=== PATIENT | male | born 1955 | race Caucasian/White ===

== ENCOUNTER → 2016-03-30 | Outpatient (CLI) | payer OTHER ==
[2016-03-30 16:15] LABS: CH 31.4; CHCM 34.1; HDW 2.29; HGB 15.9 gm/dL (13.0-17.5); MCH 31.2 pg (25.0-35.0); MCHC 33.8 g/dL (31.0-37.0); MCV 92.4 fL (80.0-100.0); Mean Platelet Volume 8.4; RBC 5.08 m/uL (4.30-5.90); RDW 12.1 % (11.5-15.5); WBC 6.6 k/uL (3.8-10.6)
[2016-03-30 16:28] LABS: ALT 34 U/L (21-72); AST 26 U/L (17-59); Alkaline Phosphatase 57 U/L (38-126); Anion Gap 11 mmol/L; Blood Urea Nitrogen 25 mg/dL (9-20); Calcium 9.9 mg/dL (8.4-10.2); Carbon Dioxide 30 mmol/L (22-30); Chloride 101 mmol/L (98-107); Glucose 94 mg/dL (74-99); Non-African American GFR(MDRD) >60 (>60 ml/min/1.73 sqM); Potassium 4.8 mmol/L (3.5-5.1); Sodium 142 mmol/L (137-145); Total Protein 7.8 g/dL (6.3-8.2)
[2016-03-30 17:16] LABS: Vitamin B12 401 pg/mL (239-931)
== END | disposition home or self-care (01) ==
LOC: LABWHC1 15:45
PROVIDERS: ATTEND Psychiatry & Neurology Pain Medicine
DX: R41.3 Other amnesia (principal)
CPT/HCPCS: 36415; 80053; 82607; 84207; 84439; 84443; 84481; 85027

== ENCOUNTER → 2016-04-22 | Outpatient (CLI) | payer OTHER ==
--- NOTE | 2016-04-22 14:49 | XR ---
EXAMINATION TYPE: XR chest 2V DATE OF EXAM: 04/22/2016 12:48 PM COMPARISON: 12/31/2014 TECHNIQUE: PA and lateral views submitted. HISTORY: Cough and congestion FINDINGS: The lungs are clear and there is no pneumothorax, pleural effusion, or focal pneumonia. Linear allen ges in the perihilar region most typical of scar or atelectasis. IMPRESSION: 1. No acute process.
== END | disposition home or self-care (01) ==
LOC: RADXRMAIN 12:21
PROVIDERS: ATTEND Internal Medicine
DX: J20.9 Acute bronchitis, unspecified (principal)
CPT/HCPCS: 71020

== ENCOUNTER → 2016-05-11 | Outpatient (CLI) | payer OTHER ==
--- NOTE | 2016-05-11 15:45 | NM ---
EXAMINATION TYPE: NM DatScan Brain SPECT DATE OF EXAM: 05/11/2016 2:59 PM COMPARISON: NONE HISTORY: Memory loss TECHNIQUE: 10 drops of Lugol's solution was administered 1 hour prior to injection as a thyroid bloc chiqui agent. After the administration of 4.3 mCi I-123 Ioflupane DaTscan. Images obtained 3.25 hours post injection. SPECT images of the brain were acquired with axial and coronal reconstructions. FINDINGS: The axial SPECT images demonstrate increased background activity and reduced activity withi n the bilateral striata. IMPRESSION: Abnormal appearance highly suggestive of idiopathic Parkinson's disease or Parkinsonian s yndrome. FINDINGS: The axial SPECT images demonstrate normal background activity. Accounting for head tilt, t here appears to be symmetric comma-shaped appearance of the corpus striatum. IMPRESSION: 1. Normal uptake. In the appropriate clinical setting there is concern for Alzheimer's disease then t his scan would be compatible.
== END ==
LOC: RADNMMAIN 09:46
PROVIDERS: ATTEND Psychiatry & Neurology Neurology
DX: R41.3 Other amnesia (principal)
CPT/HCPCS: 78607; A9584

== ENCOUNTER → 2017-05-23 | Outpatient (CLI) | payer OTHER ==
[2017-05-23 17:36] LABS: Albumin 4.3 g/dL (3.5-5.0); Calcium 9.9 mg/dL (8.4-10.2); Potassium 4.5 mmol/L (3.5-5.1); Total Bilirubin 0.6 mg/dL (0.2-1.3); Total Protein 7.5 g/dL (6.3-8.2)
--- NOTE | 2017-05-23 18:16 | CT ---
EXAMINATION TYPE: CT chest abdomen w con DATE OF EXAM: 05/23/2017 COMPARISON: NONE HISTORY: LUQ abd pain. CT DLP: 682.8 mGycm. Automated Exposure Control for Dose Reduction was Utilized. CONTRAST: CT scan of the thorax, abdomen and pelvis is performed with IV Contrast, patient injected with 100ml mL of Isovue 300. FINDINGS: LUNGS AND PLEURAL SPACES: The lungs are grossly clear, there is no concerning parenchymal mass or nod ule identified. There is no pleural effusion or pneumothorax seen. The tracheobronchial tree is pa tent. MEDIASTINUM: There are no greater than 1 cm hilar or mediastinal lymph nodes. No pericardial effusi on is seen. There is no cardiomegaly, LAD coronary stent appreciated. Low attenuation is seen in the subendocardial position throughout the LAD vascular territory, this finding predominantly attenuates negatively and appears to represent fatty replacement from chronic myocardial infarction. LIVER/GB: No significant abnormality is appreciated. PANCREAS: No significant abnormality is seen. SPLEEN: No significant abnormality is seen. ADRENALS: No significant abnormality is seen. KIDNEYS: No significant abnormality is seen. BOWEL: No significant abnormality is seen. LYMPH NODES: No greater than 1cm abdominal or pelvic lymph nodes are appreciated. OSSEOUS STRUCTURES: No significant abnormality is seen. IMPRESSION: 1. NO DEFINITE ACUTE PROCESS, CHEST AND ABDOMEN CT WITH CONTRAST. 2. MYOCARDIAL SUBENDOCARDIAL FINDINGS NOTED; WHICH APPEAR TO BE CHRONIC BY CT CRITERIA.
[2017-05-24 03:40] LABS: Hemoglobin A1C 5.9 % (4.0-6.0)
== END ==
LOC: RAD 16:20
PROVIDERS: ATTEND Family Medicine
DX: R10.9 Unspecified abdominal pain (principal); R07.9 Chest pain, unspecified; I82.409 Acute embolism and thrombosis of unspecified deep veins of unspecified lower extremity; I10 Essential (primary) hypertension; R06.2 Wheezing
CPT/HCPCS: 85379; 80061; 80053; 82150; 83690; 84443; 83036; 71260; 74160; 36415; Q9967

== ENCOUNTER 2018-03-20 10:46 | Emergency (ER) | payer OTHER ==
[2018-03-20 11:05] VITALS: RESP 18
--- NOTE | 2018-03-20 11:49 | ED ---
URI HPI - General Chief Complaint: Upper Respiratory Infection Stated Complaint: flu symptoms Time Seen by Provider: 03/20/18 11:21 Source: patient, RN notes reviewed, old records reviewed Mode of arrival: ambulatory Limitations: no limitations - History of Present Illness Initial Comments: 62-year-old male presents today with complaint of cough congestion 1 month. Patient states that he is a occasional recreational smoker. He reports that his symptoms started as upper respiratory cough and cold. He reports that now seems to have settled into his chest. Patient states that he has had no abdominal pain nausea vomiting. He denies chest pain. Patient states he's been using Mucinex and lape-lyf-wythzvb cough syrup with little relief. Patient states he's had intermittent fevers as well throughout this time. MD Complaint: fever, cough - Related Data Home Medications Medication Instructions Recorded Confirmed Aspirin 81 mg PO DAILY 04/29/15 03/20/18 Simvastatin [Zocor] 20 mg PO HS 04/29/15 03/20/18 ALPRAZolam [Xanax] 1 mg PO HS PRN 08/15/15 03/20/18 Carvedilol [Coreg] 6.25 mg PO BID 03/20/18 03/20/18 Levothyroxine Sodium [Synthroid] 100 mcg PO DAILY 03/20/18 03/20/18 Lisinopril [Prinivil] 5 mg PO DAILY 03/20/18 03/20/18 Loratadine [Claritin] 10 mg PO DAILY 03/20/18 03/20/18 Nitroglycerin Sl Tabs [Nitrostat] 0.4 mg SUBLINGUAL Q5M PRN 03/20/18 03/20/18 QUEtiapine [SEROquel] 100 mg PO HS 03/20/18 03/20/18 Ranitidine HCl [Zantac] 300 mg PO BID 03/20/18 03/20/18 Previous Rx's Medication Instructions Recorded Azithromycin [Zithromax Z-pack] 250 mg PO DIRECTED #6 tab 03/20/18 predniSONE 50 mg PO DAILY #5 tablet 03/20/18 Allergies Allergy/AdvReac Type Severity Reaction Status Date / Time No Known Allergies Allergy Verified 03/20/18 11:20 Review of Systems ROS Statement: Those systems with pertinent positive or pertinent negative responses have been documented in the HPI. ROS Other: All systems not noted in ROS Statement are negative. Past Medical History Past Medical History: Chest Pain / Angina, Hyperlipidemia, Myocardial Infarction (SC) Last Myocardial Infarction Date:: 2001 History of Any Multi-Drug Resistant Organisms: None Reported Past Surgical History: Adenoidectomy, Heart Catheterization, Heart Catheterization With Stent, Hernia Repair, Tonsillectomy Additional Past Surgical History / Comment(s): RHINOPLASTY. CYST REMOVED FROM BACK Past Anesthesia/Blood Transfusion Reactions: No Reported Reaction Date of Last Stent Placement:: 2001 Past Psychological History: Anxiety, Depression Smoking Status: Former smoker Past Alcohol Use History: Occasional Past Drug Use History: Marijuana - Past Family History Mother Family Medical History: No Reported History General Exam - General Exam Comments Initial Comments: Pleasant 62-year-old male. Alert and oriented 3. Patient appears in no significant distress. Limitations: no limitations General appearance: alert, in no apparent distress Head exam: Present: atraumatic, normocephalic, normal inspection Eye exam: Present: normal appearance, PERRL, EOMI. Absent: scleral icterus, conjunctival injection, periorbital swelling ENT exam: Present: normal exam, mucous membranes moist Neck exam: Present: normal inspection. Absent: tenderness, meningismus, lymphadenopathy Respiratory exam: Present: normal lung sounds bilaterally. Absent: respiratory distress, wheezes, rales, rhonchi, stridor Cardiovascular Exam: Present: regular rate, normal rhythm, normal heart sounds. Absent: systolic murmur, diastolic murmur, rubs, gallop, clicks GI/Abdominal exam: Present: soft, normal bowel sounds. Absent: distended, tenderness, guarding, rebound, rigid Extremities exam: Present: normal inspection, full ROM, normal capillary refill. Absent: tenderness, pedal edema, joint swelling, calf tenderness Back exam: Present: normal inspection Neurological exam: Present: alert, oriented X3, CN II-XII intact Psychiatric exam: Present: normal affect, normal mood Skin exam: Present: warm, dry, intact, normal color. Absent: rash Course Vital Signs 03/20/18 03/20/18 11:01 13:25 Temperature 98.4 F 97.4 F L Pulse Rate 92 85 Respiratory 18 18 Rate Blood Pressure 126/84 124/80 O2 Sat by Pulse 96 95 Oximetry Medical Decision Making - Medical Decision Making Patient is a 62 year old male with upper respiratory congestion for one month. Patient has wheezing noted, given IM solumedrol. Patient CXR is normal. Patient has negative influenza. Patient has been given IM rocephin, and will diagnose with bronchitis. DC with steriods, inhaler, and azithromycin. Discussed close follow up with PCP. - Lab Data Lab Results 03/20/18 Range/Units 11:42 Influenza Type A RNA Not Detected (Not Detectd) Influenza Type B (PCR) Not Detected (Not Detectd) - Radiology Data Radiology results: report reviewed Normal CXR. Disposition Clinical Impression: Bronchitis Disposition: HOME SELF-CARE Condition: Good Instructions (If sedation given, give patient instructions): Acute Bronchitis ( ED) Additional Instructions: Patient advised to follow-up with primary care physician. Return to emergency department if any alarming signs or symptoms occur. Prescriptions: Azithromycin [Zithromax Z-pack] 250 mg PO DIRECTED #6 tab predniSONE 50 mg PO DAILY #5 tablet Is patient prescribed a controlled substance at d/c from ED?: No Referrals: Tomy Barrios MD [Primary Care Provider] - 1-2 days Time of Disposition: 13:38
[2018-03-20] MEDS ORDERED: methylPREDNISolone SOD SUCCI 125 MG/2 ML VIAL IM ONE (12:49)
[2018-03-20] MEDS ORDERED: cefTRIAXone 1,000 MG VIAL (IM USE) IM STA (12:49)
--- NOTE | 2018-03-20 13:08 | XR ---
EXAMINATION TYPE: XR chest 2V DATE OF EXAM: 03/20/2018 COMPARISON: 04/22/2016 INDICATION: Pain TECHNIQUE: Frontal and lateral views of the chest are obtained. FINDINGS: The heart size is normal. The pulmonary vasculature is normal. The lungs are clear. No significant interval change. IMPRESSION: 1. No acute pulmonary process.
[2018-03-20 13:25] VITALS: BP 124/80; PULSE 85; TEMP 97.4
== END 2018-03-20 13:57 | disposition home or self-care (01) ==
LOC: EC 10:46
DX: J40 Bronchitis, not specified as acute or chronic (principal); E78.5 Hyperlipidemia, unspecified; I25.2 Old myocardial infarction; F32.9 Major depressive disorder, single episode, unspecified; F41.9 Anxiety disorder, unspecified; F17.200 Nicotine dependence, unspecified, uncomplicated; Z79.82 Long term (current) use of aspirin; Z79.890 Hormone replacement therapy; Z79.899 Other long term (current) drug therapy; Z95.818 Presence of other cardiac implants and grafts; Z90.89 Acquired absence of other organs
CPT/HCPCS: 87502; 71046; 99284; 96372 ×2; J2930; J0696

== ENCOUNTER → 2018-05-31 | Outpatient (CLI) | payer OTHER ==
--- NOTE | 2018-05-31 11:05 | XR ---
EXAMINATION TYPE: XR chest 2V DATE OF EXAM: 05/31/2018 COMPARISON: Prior chest x-ray 03/20/2018 HISTORY: R06.09, dyspnea on exertion TECHNIQUE: Frontal and lateral views of the chest are obtained. FINDINGS: There are prominent lung volume suggesting underlying COPD. Some strand-like densities with in the lungs may reflect atelectasis or scarring. There is no focal air space opacity, pleural effusi on, or pneumothorax seen. The cardiac silhouette size is within normal limits. The osseous structu res are intact. IMPRESSION: No acute cardiopulmonary process. Additional findings above.
== END | disposition home or self-care (01) ==
LOC: RADXRMAIN 10:38
PROVIDERS: ATTEND Internal Medicine Pulmonary Disease
DX: J98.4 Other disorders of lung (principal); R06.09 Other forms of dyspnea
CPT/HCPCS: 71046

== ENCOUNTER → 2018-08-31 | Outpatient (CLI) | payer OTHER ==
[2018-08-31 16:02] LABS: African American GFR (CKD) 93.1 (60.0-200.0); Anion Gap 7.3 mmol/L (4.00-12.00); Calcium 9.6 mg/dL (8.7-10.3); Carbon Dioxide 26.7 mmol/L (21.6-31.8); LDL Cholesterol,Calculated 115.4 mg/dL (0.0-131.0); VLDL Calculation 14.6 mg/dL (5.00-40.00)
== END | disposition home or self-care (01) ==
LOC: LABWHC1 11:37
DX: E78.2 Mixed hyperlipidemia (principal); R06.02 Shortness of breath
CPT/HCPCS: 36415; 80048; 80061; 83880; 84450; 84460

== ENCOUNTER → 2019-04-03 | Outpatient (CLI) | payer OTHER ==
--- NOTE | 2019-04-03 15:34 | CTL ---
EXAMINATION TYPE: CT Low Dose Lung DATE OF EXAM ORDERED: 04/03/2019 HISTORY: 63-year-old male Personal history of tobacco use. Lung cancer screening CT DLP: 89.[address] CTDI: 3.0 mGy Automated exposure control for dose reduction was used. SCREENING VISIT: Baseline COMPARISON: 05/23/2017 TECHNIQUE: Low dose computed tomography scan was performed through the chest at 1 mm thick sections a nd reconstructed images in the coronal/sagittal plane. Additional coronal MIP reconstruction was gene rated. CT DIAGNOSTIC QUALITY: Satisfactory FINDINGS: Heart normal size without pericardial effusion. Redemonstrated fatty attenuation along the subendocar dial mid to apical septal wall suggesting old infarct. Seems to be an LAD stent. Ascending aorta ectatic at 3.8 cm. Conventional vessel branching anatomy. No thoracic lymphadenopathy by CT size criteria. Lungs show [id number] diffuse bronchial wall thickening and prominent bands of atelectasis in t he anterior mid to lower lungs. No consolidation or pleural effusion. 4 mm posterior right basilar pulmonary nodule, axial image 208. Not seen before. 3 mm posterior left basilar pulmonary nodule, axial image 208. Not seen previously. 3 mm superior segment left lower lobe pulmonary nodule, axial image 97, not seen before. 3 mm right middle lobe pulmonary nodule, stable, axial image 168. 4 mm lateral right middle lobe pulmonary nodule, stable, axial image 157. 4 mm posterior right lower lobe pulmonary nodule, axial image 156, stable. 3 mm right lower lobe pulmonary nodule, axial image 147, stable. 2 mm lateral right midlung pulmonary nodule, axial measurement 117, stable. Tiny hiatal hernia. Visualized upper abdomen shows no gross abnormality. Bones: Mild anterior endplate spondylosis mid to lower thoracic spine. IMPRESSION: 1. LungRADS 3, probably benign; numerous 4 mm and smaller pulmonary nodules. A few 3 and 4 mm pulmona ry nodules are new from 05/23/2017. 2. Bronchial wall thickening suggests bronchitis or asthma. 3. Findings suggest old subendocardial infarct along the mid to apical septal wall, stable from 2018. 4. Tiny hiatal hernia. RECOMMENDATION: 1. Six-month follow-up low-dose CT chest. 2. Smoking cessation. FOLLOW UP CT CHEST RECOMMENDATION: [address] LUNG RAD: Lung-Rad 3 Probably Benign
== END | disposition home or self-care (01) ==
LOC: RADCTMAIN 14:02
PROVIDERS: ATTEND Family Medicine
DX: Z12.2 Encounter for screening for malignant neoplasm of respiratory organs (principal); R91.1 Solitary pulmonary nodule; J98.4 Other disorders of lung; Z87.891 Personal history of nicotine dependence

== ENCOUNTER → 2019-10-11 | Outpatient (CLI) | payer OTHER ==
--- NOTE | 2019-10-11 15:51 | CTL ---
EXAMINATION TYPE: CT Low Dose Lung DATE OF EXAM ORDERED: 10/11/2019 COMPARISON: 04/03/2019 HISTORY: . Low Dose CT Lung Screening CT DLP: [address] CTDI: 1.68 mGy IV CONTRAST USED: None. SCREENING VISIT: First visit COMPARISON: None. TECHNIQUE: Low dose computed tomography scan was performed through the chest at 1 millimeter thick se ctions and reconstructed images in the coronal plane at [address] DIAGNOSTIC QUALITY: Satisfactory FINDINGS: LUNG NODULES: Stable scattered 3 and 4 mm pulmonary nodules remain stable with regards to overall siz e shape and number. No new nodules identified. LUNGS: COPD: Severity: Lungs show wbjy-cy-fehqmftn diffuse bronchial wall thickening and prominent bands of atelectasis in the anterior mid to lower lungs. No consolidation or pleural effusion. Fibrosis: Severity:None Lymph nodes: None Other findings: None RIGHT PLEURAL SPACE: Effusion: None Calcification: None Thickening: None Pneumothorax: None LEFT PLEURAL SPACE: Effusion: None Calcification: None Thickening: None Pneumothorax: None HEART: Heart Size: Mildly enlarged Coronary calcification: Mild Pericardial effusion: None OTHER FINDINGS: Upper abdomen: No significant abnormality Bony thorax: Degenerative changes Supraclavicular region: No significant abnormalityOther: No significant abnormalityI IMPRESSION: Benign FOLLOW UP CT CHEST RECOMMENDATION: Follow-up screening in one year. Smoking cessation recommended. CT LUNG RAD: LUNG RAD CATEGORY 2 benign or being 9 behavior.
== END | disposition home or self-care (01) ==
LOC: RADCTMAIN 15:18
PROVIDERS: ATTEND Family Medicine
DX: Z12.2 Encounter for screening for malignant neoplasm of respiratory organs (principal); Z87.891 Personal history of nicotine dependence

== ENCOUNTER → 2020-11-07 | Outpatient (CLI) | payer OTHER ==
--- NOTE | 2020-11-07 08:37 | CT ---
EXAMINATION TYPE: CT abdomen pelvis wo con DATE OF EXAM: 11/07/2020 HISTORY: Right lower quadrant pain for one month. CT DLP: 609 mGycm. Automated Exposure Control for Dose Reduction was Utilized. TECHNIQUE: CT scan of the abdomen and pelvis is performed without oral or IV contrast. COMPARISON: CT chest and abdomen May 23, 2017 FINDINGS: Within the limitations of a non-contrast study, the following observations are made. Exam slightly suboptimal as there is ring artifact noted. LUNG BASES: Mild bibasilar linear scarring. LIVER/GB: No significant abnormality is appreciated. PANCREAS: No significant abnormality is seen. SPLEEN: No significant abnormality is seen. ADRENALS: No significant abnormality is seen. KIDNEYS: No renal stones or hydronephrosis is seen bilaterally. No intraluminal calculus. BOWEL: Normal-appearing appendix from the cecum in the right upper pelvis. No suspicious small or lar ge bowel dilatation. GENITAL ORGANS: Prostate gland mildly prominent bulging on the bladder base, correlate clinically for BPH. LYMPH NODES: No greater than 1cm abdominal or pelvic lymph nodes are appreciated. OSSEOUS STRUCTURES: Plql-rl-[id number] multilevel anterior and lateral spurring. OTHER: No significant ventral or groin hernia. Mild calcified plaque of the aorta extends into branch vessels IMPRESSION: No acute findings are evident.
== END | disposition home or self-care (01) ==
LOC: RADCTMAIN 07:58
PROVIDERS: ATTEND Family Medicine
DX: R10.31 Right lower quadrant pain (principal)
CPT/HCPCS: 74176

== ENCOUNTER → 2021-01-26 | Outpatient (CLI) | payer MEDICARE, OTHER ==
--- NOTE | 2021-01-26 11:34 | FL ---
EXAMINATION TYPE: FL barium swallow DATE OF EXAM: 01/26/2021 CLINICAL HISTORY: Dysphasia. Food getting caught proximal esophageal level. History of reflux control with medication. TECHNIQUE: A double contrast esophagram is performed utilizing air and barium. A total of 23 second s of fluoroscopic time was utilized during procedure and 35 images obtained COMPARISON: Prior low-dose lung screening CT October 11, 2019. Prior esophagram October 02, 2015 FINDINGS: The esophagus redemonstrates normal motility and emptying into the stomach. No proximal di verticulum. No suspicious intraluminal mass. No evidence of fixed hiatal hernia or stricture noted. N o significant gastroesophageal reflux was seen during real time performance of this study. IMPRESSION: No significant abnormality is seen to account for patient's symptoms of proximal dysphag ia. No significant change from prior esophagram.
== END | disposition home or self-care (01) ==
LOC: RADUSWWP 09:45
PROVIDERS: ATTEND Otolaryngology
DX: R13.10 Dysphagia, unspecified (principal)
CPT/HCPCS: 74220

== ENCOUNTER → 2021-04-29 | Outpatient (CLI) | payer MEDICARE, OTHER ==
--- NOTE | 2021-04-29 17:27 | CT ---
EXAMINATION TYPE: CT lumbar spine wo con DATE OF EXAM: 04/29/2021 1:52 PM COMPARISON: CT dated 11/07/2020 HISTORY: low back pain, right leg numbness. No injury. CT DLP: 530.1 mGycm Automated exposure control for dose reduction was used. Technique: Unenhanced CT of the lumbar spine was performed. Bone and soft tissue window settings are submitted as well as coronal and sagittal reconstructions. Findings: Preserved lumbar lordosis. No significant anterolisthesis or retrolisthesis. No definite vertebral brandie dy collapse or acute displaced fracture. Sclerotic area is seen at L5-S1 opposing endplate, possibly degenerative with other scattered subtle lucencies in the visualized bones, nonspecific. Bone marrow infiltrative process cannot be excluded. Further bone scan assessment can be considered. Degenerative changes of the lumbar spine with multilevel opposing endplate osteophytosis and slightly degenerated L3-4 disc. No significant facet arthropathy. L1-L2: No significant disc disease, central spinal canal stenosis or neuroforaminal stenosis. L2-L3: Mild diffuse posterior disc bulge, causing no significant central spinal canal stenosis or eusebio roforaminal stenosis. L3-L4: Slightly degenerated disc with mild diffuse posterior disc bulge, causing no significant centr al spinal canal stenosis or neuroforaminal stenosis. L4-L5: No significant disc disease, central spinal canal stenosis or neuroforaminal stenosis. L5-S1: Questionable small central posterior disc protrusion with tiny disc calcification/osteophytosi s, causing no significant central spinal canal stenosis or significant neuroforaminal stenosis. Scattered arterial atherosclerotic calcifications. No paraspinal lesion. Mild degenerative changes of the sacroiliac joints. IMPRESSION: Mild degenerative changes of the lumbar spine with mild multilevel DDD without significant central sp inal canal stenosis or neuroforaminal stenosis as described above. Sclerotic changes at L5-S1 level with subtle scattered osseous lucencies in the visualized bones, non specific. Further bone scan assessment can be considered if clinically required.
== END | disposition home or self-care (01) ==
LOC: RADCTMAIN 13:34
PROVIDERS: ATTEND Family Medicine
DX: M51.36 Other intervertebral disc degeneration, lumbar region (principal); M54.40 Lumbago with sciatica, unspecified side
CPT/HCPCS: 72131

== ENCOUNTER → 2023-10-04 | Outpatient (CLI) | payer MEDICARE, OTHER ==
--- NOTE | 2023-10-05 08:34 | MR ---
EXAMINATION TYPE: MR neck wo/w con DATE OF EXAM: 10/04/2023 3:48 PM CLINICAL INDICATION: Male, 67 years old with history of R13.10 DYSPHAGIA, UNSPECIFIED; Dysphagia, hx tonsils removed. COMPARISON: Speech evaluation 01/26/2021. TECHNIQUE: Multi planar, multi sequence imaging was performed of the neck soft tissues. MR contrast: IV Contrast: 7 cc Gadavist FINDINGS: The glottis appears unremarkable. Surgically absent tonsils noted. No abnormal edema or mu cosal masses definitively visualized in the oropharynx or hypopharynx. Parapharyngeal space and mucos a are symmetrical. Several nonenlarged anterior chain lymph nodes are identified. There is no eviden ce to suggest a soft tissue mass. No abnormal postcontrast enhancement. The cervical vertebral bodies have preserved heights and alignment. Multilevel disc desiccation and anterior osteophytosis are present. The cervical spinal cord demonstrates a normal appearance. IMPRESSION: 1. No definitive evidence for soft tissue mass. No finding to correlate patient's dysphagia. No abno rmal postcontrast enhancement. 2. Multilevel degenerative disc disease with associated osteoarthritic changes.
== END | disposition home or self-care (01) ==
LOC: RADMRIMAIN 14:04
PROVIDERS: ATTEND Family Medicine
DX: R13.10 Dysphagia, unspecified
CPT/HCPCS: 70543

== ENCOUNTER 2024-04-16 06:16 | Day surgery (SDC) | payer MEDICARE, OTHER ==
[2024-04-12 10:38] VITALS: BMI 27.4
[~2024-04-16 06:16] MED LIST: ALPRAZolam 0.25 MG TAB PO PRN; ALPRAZolam 0.5 MG TAB PO PRN; NITROGLYCERIN SL TABS 0.4 MG TAB SUBLINGUAL PRN
[2024-04-16] MEDS: IV FLUID CONTINUATION 1,000 ML IV ONE (06:43)
[2024-04-16] MEDS: SODIUM CHLORIDE 0.9% 1,000 ML in EMPTY BAG 1 BAG IV SCH ×2 (06:43→13:05)
[2024-04-16 07:01] LABS: Basophils % (A) 0 %; Eosinophils # (A) 0.3 k/uL (0-0.7); Eosinophils % (A) 3 %; HCT 45.8 % (39.0-53.0); HGB 14.8 gm/dL (13.0-17.5); Lymphocytes # (A) 1.2 k/uL (1.0-4.8); Lymphocytes % (A) 15 %; MCH 30.5 pg (25.0-35.0); MCHC 32.2 g/dL (31.0-37.0); MCV 94.6 fL (80.0-100.0); Mean Platelet Volume 8.2; Monocytes # (A) 0.3 k/uL (0-1.0); Monocytes % (A) 4 %; Neutrophils # (A) 6.1 k/uL (1.3-7.7); Neutrophils % (A) 76 %; Platelet Count 257 k/uL (150-450); RBC 4.84 m/uL (4.30-5.90); RDW 11.9 % (11.5-15.5)
[2024-04-16] MEDS: HEPARIN SODIUM,PORCINE 10,000 UNIT in SODIUM CHLORIDE 0.9% 1,000 ML IRRIGATION PRN (07:12)
[2024-04-16] MEDS: HEPARIN SODIUM,PORCINE (1 ML) 2,500 UNIT in SODIUM CHLORIDE 0.9% 250 ML IRRIGATION PRN (07:12)
[2024-04-16 07:21] LABS: African American GFR (CKD) >90 (>60 ml/min/1.73 sqM); Anion Gap 8 mmol/L; Blood Urea Nitrogen 12 mg/dL (9-20); Calcium 9.3 mg/dL (8.4-10.2); Carbon Dioxide 27 mmol/L (22-30); Chloride 101 mmol/L (98-107); Glucose 104 mg/dL (74-99); Non-African American GFR(CKD) >90 (>60 ml/min/1.73 sqM); Sodium 136 mmol/L (137-145)
[2024-04-16] MEDS: MIDAZOLAM 2 MG/2 ML VIAL IVP ONE (07:53)
[2024-04-16] MEDS: LIDOCAINE 1% INJ 10MG/ML (20 ML MDV) SQ ONE (07:55)
[2024-04-16] MEDS: VERAPAMIL SYRINGE (5 MG/10 ML) INTRAARTER ONE ×2 (07:58→07:59)
[2024-04-16] MEDS: HEPARIN SODIUM 1,000 UN/ML (10ML VL) IVP ONE ×2 (08:00→08:18)
[2024-04-16] MEDS: MORPHINE SULFATE 4 MG/ML SYRINGE IVP ONE ×2 (08:13→08:27)
[2024-04-16] MEDS: fentaNYL (PF) 50 MCG/ML 2 ML AMP IVP ONE (08:18)
[2024-04-16] MEDS: PRASUGREL 10 MG TAB PO ONE (08:27)
[2024-04-16] MEDS: IOPAMIDOL-370 100ML BTL INJ ONE (08:36)
[2024-04-16] MEDS ORDERED: ALPRAZolam 1 MG TAB PO PRN (08:37)
[2024-04-16] MEDS ORDERED: NITROGLYCERIN SL TABS 0.4 MG TAB SUBLINGUAL PRN ×2 (08:37→08:38)
[2024-04-16] MEDS ORDERED: RX INFO: IV CONTRAST WAS GIVEN 1 EACH MISC MISCELLANE PRN (08:38)
[2024-04-16] MEDS ORDERED: ZOLPIDEM 5 MG TAB PO PRN (08:38)
[2024-04-16] MEDS ORDERED: MAG HYDROX/AL HYDROX/SIMETH 30 ML CUP PO PRN (08:38)
[2024-04-16] MEDS ORDERED: ATROPINE SULFATE 0.1 MG/ML 10ML SYRINGE IV PRN (08:38)
--- NOTE | 2024-04-16 08:42 | P.PCN ---
Date of Procedure: 04/16/24 Operative Findings: CARDIAC CATHETERIZATION AND PERCUTANEOUS CORONARY INTERVENTION PERFORMING PHYSICIAN: Pete Kapadia MD, [facility] PROCEDURE PERFORMED: 1. Selective right and left coronary angiogram and left heart catheterization 2. Successful stenting of proximal LAD using 3.25 x 18 mm Xience BRUNILDA with an excellent angiographic results 3. Adjunctive use of IVUS and IFR 4. Ultrasound-guided access of the right radial artery INDICATION: Symptomatic 68-year-old gentleman with abnormal stress test and history of CAD with prior revascularization COMPLICATION: None APPROACH: Right radial artery LEVEL OF SEDATION: Moderate with the sedation time off 41 minutes PROCEDURE DESCRIPTION: After obtaining informed consent the patient was brought to the cardiac Conditioning Room Worker with right radial artery was cannulated using micropuncture technique under ultrasound guidance a micropuncture wire passed easily then I placed a 6 Nepalese 11 cm sheath at the right radial artery and give the patient 2 mg of verapamil intra-arterial and 5000 units of heparin intravenous with continuous ACT monitoring throughout the procedure. Selective right and left coronary angiogram performed using JR4 and JL 3.5 catheters. Left heart catheterization was performed using the JL 3.5 catheter. After that we decided to do an IFR of the LAD. After zeroing the Dobler wire and equalizing between the Dobler wire and guiding catheter the left main was engaged using JL 3 guiding catheter and the LAD was wired with IFR came to be at 0.84. I did pullback to assess IFR of the left main and that came in to be nonflow-limiting. At that point I decided to intervene on the LAD. I did IVUS of the LAD which showed a diameter around 3 mm 3.25 mm. I predilated using 3 mm NC balloon before I deployed 3.25 x 18 mm Xience BRUNILDA with an IVUS and an angiogram showing excellent angiographic results and the procedure was performed with no complication SELECTIVE CORONARY ANGIOGRAM: The right coronary artery: Medium caliber vessel nondominant vessel Left main: Has mild disease by the ostium documented to be nonflow-limiting by Doppler wire The left circumflex: Has intermediate to severe disease involving OM 2 The left anterior descending artery: Has intermediate to severe disease documented to be flow-limiting distal to the stent in the proximal LAD HEMODYNAMICS: The LVEDP was 4 mmHg with no significant gradient across aortic valve CONCLUSION: 1. Severe disease involving the proximal LAD. I did PCI of the LAD as brunilda cribed above 2. Intermediate to severe disease involving OM 2 need to be assessed by Doppler wire down the line 3. Low left-sided filling pressure POSTPROCEDURE MANAGEMENT: 1. Dual antiplatelet therapy using aspirin and Effient for at least 6 month 2. Aggressive cholesterol control 3. Follow-up with the patient
[2024-04-16] MEDS: ATORVASTATIN 80 MG TAB PO STA (13:05)
[2024-04-16] MEDS: ASPIRIN 325 MG TAB PO STA (13:05)
[2024-04-16] MEDS: ASCORBIC ACID 500 MG TAB PO SCH (13:06)
[2024-04-16] MEDS: ASPIRIN 81 MG PO SCH (13:06)
[2024-04-16] MEDS: FORMOTEROL FUMARATE 20 MCG/2 ML NEBU INHALATION SCH (14:09)
[2024-04-16] MEDS: LORATADINE 10 MG TAB PO SCH (14:09)
[2024-04-16] MEDS: LEVOTHYROXINE 88 MCG TAB PO SCH (14:09)
[2024-04-16] MEDS: carvediloL 6.25 MG TAB PO SCH (14:09)
[2024-04-16] MEDS: VITAMIN E (DL,TOCOPHERYL ACET) 400 UNIT (180 MG) CAP PO SCH (14:10)
[2024-04-16] MEDS: TIOTROPIUM 2.5 MCG INHALER INHALATION SCH (14:11)
[2024-04-16] MEDS: ACETAMINOPHEN TAB 325 MG TAB PO PRN (15:08)
[2024-04-16] MEDS: NON FORMULARY DRUG (Omega-3/Dha/Epa/Fish Oil [Fish Oil 1,000 Mg Softgel] 1 EACH Capsule) PO SCH (17:42)
[2024-04-16] MEDS: TESTOSTERONE CYPIONATE 200 MG/ML 1ML VIAL IM SCH (17:42)
[2024-04-16] MEDS: ATORVASTATIN 80 MG TAB PO SCH (19:57)
[2024-04-16] MEDS: lisinopriL 5 MG TAB PO SCH (19:57)
[2024-04-16] MEDS: MONTELUKAST 10 MG TAB PO SCH (19:57)
[2024-04-16] MEDS: PANTOPRAZOLE 40 MG TABLET PO SCH (19:58)
--- NOTE | 2024-04-17 02:11 | PN ---
PROGRESS NOTE Status post heart catheterization, which showed patent LAD, a stent was placed. Home medicines have been reordered and his home medications if the Cardiology did clear. The patient says he is feeling better today. He has been up and ambulating and he is saturating at 97 on room air. OBJECTIVE: VITAL SIGNS: Blood pressure 109/43, temp 97.6, pulse is 97, respiratory rate 16 to 18. LUNGS: Transmitted upper airway sounds. Clear. GI: Soft. PSYCH: Fair mood and affect. ASSESSMENT: 1. Status post coronary artery bypass graft surgery. 2. Chronic obstructive pulmonary disease. 3. Marijuana smoker. PROGNOSIS: Guarded. Please see further orders. MMODL / IJN: [id number] /
[2024-04-17 06:06] LABS: African American GFR (CKD) >90 (>60 ml/min/1.73 sqM); Non-African American GFR(CKD) >90 (>60 ml/min/1.73 sqM)
[2024-04-17 08:11] VITALS: BP 119/78; PULSE 68; RESP 16; TEMP 97.7
--- NOTE | 2024-04-17 08:51 | P.DS ---
Providers Attending physician: Pete Kapadia Consults: 04/16/24 08:38 Consult Physician Routine Consulting Provider: [facility] Consult Reason/Comments: Post Interventional patient Do you want consulting provider notified?: Already Contacted Primary care physician: [facility] Course: the patient is a pleasant 68-year-old gentleman who underwent yesterday heart catheterization and PCI. He was seen and evaluated this morning. He is asymptomatic and hemodynamically stable. The right radial site is soft and nontender with no bruises The patient is going to be discharged home on dual antiplatelet therapy and I will follow-up with the patient next week in the office Plan - Discharge Summary Discharge Rx Participant: No New Discharge Prescriptions: New Prasugrel [Effient] 10 mg PO DAILY #90 tab Continue Aspirin 81 mg PO DAILY ALPRAZolam [Xanax] 1 mg PO HS PRN PRN Reason: Anxiety Nitroglycerin Sl Tabs [Nitrostat] 0.4 mg SUBLINGUAL Q5M PRN PRN Reason: Chest Pain Loratadine [Claritin] 10 mg PO DAILY lisinopriL [Prinivil] 5 mg PO HS Levothyroxine Sodium [Synthroid] 88 mcg PO DAILY carvediloL [Coreg] 6.25 mg PO BID Omeprazole 40 mg PO HS Atorvastatin [Lipitor] 80 mg PO HS Eleva-3/Dha/Epa/Fish Oil [Fish Oil 1,000 mg Softgel] 1 each PO DAILY Tiotropium Br/Olodaterol HCl [Stiolto Respimat Inhaler (60)] 2 puff INHALATION DAILY Albuterol Inhaler [Ventolin Hfa Inhaler] 1 - 2 puff INHALATION Q6H PRN PRN Reason: sob Testosterone Cypionate [Depo-Testosterone] 200 mg IM Q30D Montelukast [Singulair] 10 mg PO HS Vitamin E Acetate [Vitamin E] 134 mg PO DAILY Ascorbic Acid [Vitamin C] 500 mg PO DAILY Discharge Medication List Aspirin 81 mg PO DAILY 04/29/15 [History] ALPRAZolam [Xanax] 1 mg PO HS PRN 08/15/15 [History] Levothyroxine Sodium [Synthroid] 88 mcg PO DAILY 03/20/18 [History] Loratadine [Claritin] 10 mg PO DAILY 03/20/18 [History] Nitroglycerin Sl Tabs [Nitrostat] 0.4 mg SUBLINGUAL Q5M PRN 03/20/18 [History] carvediloL [Coreg] 6.25 mg PO BID 03/20/18 [History] lisinopriL [Prinivil] 5 mg PO HS 03/20/18 [History] Atorvastatin [Lipitor] 80 mg PO HS 03/25/22 [History] Montelukast [Singulair] 10 mg PO HS 03/25/22 [History] Eleva-3/Dha/Epa/Fish Oil [Fish Oil 1,000 mg Softgel] 1 each PO DAILY 03/25/22 [H istory] Omeprazole 40 mg PO HS 03/25/22 [History] Vitamin E Acetate [Vitamin E] 134 mg PO DAILY 03/25/22 [History] Albuterol Inhaler [Ventolin Hfa Inhaler] 1 - 2 puff INHALATION Q6H PRN 04/12/24 [History] Ascorbic Acid [Vitamin C] 500 mg PO DAILY 04/12/24 [History] Testosterone Cypionate [Depo-Testosterone] 200 mg IM Q30D 04/12/24 [History] Tiotropium Br/Olodaterol HCl [Stiolto Respimat Inhaler (60)] 2 puff INHALATION DAILY 04/12/24 [History] Prasugrel [Effient] 10 mg PO DAILY #90 tab 04/17/24 [Rx] Follow up Appointment(s)/Referral(s): Pete Kapadia MD [STAFF PHYSICIAN] - 1 Week
[2024-04-17] MEDS: PRASUGREL 10 MG TAB PO SCH (09:12)
== END 2024-04-17 09:32 | disposition home or self-care (01) ==
LOC: CATHCVL 06:16 → 6NMEDSUR 08:38 → CATHCVL 04-17 09:32
PROVIDERS: ATTEND Internal Medicine Interventional Cardiology
DX: I25.10 Atherosclerotic heart disease of native coronary artery without angina pectoris (principal); Z95.5 Presence of coronary angioplasty implant and graft; J44.9 Chronic obstructive pulmonary disease, unspecified; Z79.02 Long term (current) use of antithrombotics/antiplatelets; Z79.82 Long term (current) use of aspirin
CPT/HCPCS: 93005; 92978; 93458; 93799; 80048; 82565; 85025; C9600; C1887; C1769 ×2; C1894; C1753; C1874; C1725; J2250; J2270; J1644 ×3; J2003; J3010; Q9967